=== PATIENT | female | born 1990 | race Caucasian/White ===

== ENCOUNTER 2017-06-20 17:20 | Inpatient (IN) | payer OTHER ==
[2017-06-20 18:23] VITALS: BMI 28.3
[2017-06-20] MEDS ORDERED: CITRIC ACID/SODIUM CITRATE 30 ML UNIT-DOSE CUP PO ONE (18:30)
[2017-06-20] MEDS ORDERED: ELECTROLYTE-148 SOLN 500 ML IV ONE (18:30)
[2017-06-20] MEDS ORDERED: ELECTROLYTE-148 SOLN 1,000 ML IV SCH (19:00)
[2017-06-20] MEDS ORDERED: morphine SULFATE/Preservative Free 0.5 MG/ML (1cc Syringe) ONE (20:12)
[2017-06-20] MEDS ORDERED: BUPIVACAINE 0.75% IN DEXTROSE/PF 2ML AMPULE NR ONE (20:20)
[2017-06-20] MEDS ORDERED: ceFAZolin SODIUM 1 GM VIAL ONE (20:27)
[2017-06-20] MEDS ORDERED: OXYTOCIN 10 UNITS/ML VIAL ONE (20:53)
[2017-06-20] MEDS ORDERED: D5W-LR W/ 20 UNITS OXYTOCIN 20 UNIT/1,000 ML INFUS.BAG IV SCH (21:30)
[2017-06-20] MEDS ORDERED: METHYLERGONOVINE MALEATE 0.2 MG/1 ML AMP IM PRN (22:48)
[2017-06-20] MEDS ORDERED: oxyCODONE HCL 5 MG TABLET PO PRN (22:48)
[2017-06-20] MEDS ORDERED: IBUPROFEN 800 MG/8 ML IJ IVPB PRN (22:50)
--- NOTE | 2017-06-20 22:52 | OP ---
Operative Note - Note: Operative Date: 06/20/17 Pre-Operative Diagnosis: Previous in labor Operation: Repeat Low Transverse Findings: Baby in Cephallic presentation Post-Operative Diagnosis: Same as Pre-op Surgeon: Martha Sanders Scheduling Administrator: Madison Puga Anesthesia: Spinal Specimens Removed: Placenta Estimated Blood Loss (mls): 600
--- NOTE | 2017-06-20 22:57 | HP ---
Past Medical History - Admission Chief Complaint: Pain in labor / Previous History of Present Illness: 26 yo @ 39 weeks gestation, EDC 06/27/17, presents to L&D c/o labor pain. She had one prior ; and was scheduled for repeat on June 23. History Source: Patient Limitations to Obtaining History: No Limitations - Past Medical History ...: 2 ...Para: 1 ...Term: 1 ...: 0 ...Spon : 0 ...Induced : 0 ...Multiple Gestation: 0 ...LMP: 09/20/16 ... Weeks Gestation by Dates: 39.0 ...EDC by Dates: 06/27/17 - Past Surgical History Past Surgical History: Yes: Hx Myomectomy: No Hx Transabdominal Cerclage: No - Smoking History Smoking history: Never smoked Have you smoked in the past 12 months: No - Alcohol/Substance Use Hx Alcohol Use: No History of Substance Use: reports: None - Social History Usual Living Arrangement: Yes: With Spouse History of Recent Travel: No Home Medications - Allergies Allergies/Adverse Reactions: Allergies Allergy/AdvReac Type Severity Reaction Status Date / Time aspirin Allergy Verified 06/20/17 18:26 metoclopramide [From Reglan] Allergy Verified 06/20/17 18:26 metronidazole [From Flagyl] Allergy Verified 06/20/17 18:26 ondansetron Allergy Verified 06/20/17 18:26 [From Zofran (as hydrochloride)] - Home Medications Home Medications: Ambulatory Orders Vitamins (Sjr) - 1 tab PO DAILY 06/20/17 Family Disease History - Family Disease History Family History: Unremarkable Review of Systems - Review of Systems Constitutional: reports: No Symptoms Eyes: reports: No Symptoms HENT: reports: No Symptoms Neck: reports: No Symptoms Cardiovascular: reports: No Symptoms Respiratory: reports: No Symptoms Gastrointestinal: reports: No Symptoms Genitourinary: reports: Pain Breasts: reports: No Symptoms Reported Musculoskeletal: reports: No Symptoms Integumentary: reports: No Symptoms Neurological: reports: No Symptoms Endocrine: reports: No Symptoms Hematology/Lymphatic: reports: No Symptoms Psychiatric: reports: No Symptoms Pain Intensity: 8 Physical Exam - Maternity Vital Signs: Vital Signs Temperature 98.2 F 06/20/17 22:15 Pulse Rate 75 05/05/18 22:15 Respiratory Rate 18 06/20/17 22:15 Blood Pressure 107/67 06/20/17 22:15 O2 Sat by Pulse Oximetry (%) 100 06/20/17 22:15 Constitutional: Yes: Well Nourished Eyes: Yes: Conjunctiva Clear HENT: Yes: Atraumatic Neck: Yes: Supple Cardiovascular: Yes: Regular Rate and Rhythm Lungs: Clear to auscultation - Abdominal Exam/OB Number of Fetuses: Single Presentation: Vertex Contractions: Yes Regularity: Regular Intensity: Mod/Strong - Vaginal Exam/OB Vaginal Bleediing: No Dilatation (cm): 2 - Physical Exam Musculoskeletal: Yes: WNL ...Motor Strength: WNL Psychiatric: Yes: Alert, Oriented Problem List - Problems (1) Previous section complicating , antepartum condition or complication Code(s): O34.219 - MATERNAL CARE FOR UNSP TYPE SCAR FROM PREVIOUS DEL (2) Pain during labor Code(s): O99.89 - OTH DISEASES AND CONDITIONS COMPL PREG/CHLDBRTH; R52 - PAIN, UNSPECIFIED Assessment/Plan Previous in labor IUP @ 39 weeks Pre op for repeat Consent signed Anesthesia to see patient
[2017-06-20] MEDS ORDERED: OXYTOCIN 20 UNITS in 0.9% NS 20 UNIT/1,000 ML INFUS.BAG IV SCH (23:00)
--- NOTE | 2017-06-21 07:35 | PN ---
Post Progress Note - Subjective Subjective: 26 yo Para 2, status post repeat Low Transverse , seen and evaluated. Doing well. She c/o incision pain. Post Day: 1 Type of Delivery: Repeat C/S Vital Signs: Vital Signs Temperature 98.9 F 06/21/17 06:00 Pulse Rate 98 H 06/21/17 06:00 Respiratory Rate 18 06/21/17 06:01 Blood Pressure 113/61 06/21/17 06:00 O2 Sat by Pulse Oximetry (%) 100 06/20/17 22:15 Breast Exam: Yes: Soft Uterus: Yes: Fundus @ umbilicus Incision: Yes: Dressing dry and intact Abdomen/GI: Yes: Abdomen soft Lochia: Yes: Rubra Lochia, amount: Small Extremities: Yes: Calves non-tender Perineum: Yes: Intact Activity: Other (She's lying in bed) Problem List - Problems (1) Previous section complicating , antepartum condition or complication Code(s): O34.219 - MATERNAL CARE FOR UNSP TYPE SCAR FROM PREVIOUS DEL (2) Pain during labor Code(s): O99.89 - OTH DISEASES AND CONDITIONS COMPL PREG/CHLDBRTH; R52 - PAIN, UNSPECIFIED (3) Status post repeat low transverse section Code(s): Z98.891 - HISTORY OF UTERINE SCAR FROM PREVIOUS SURGERY Assessment/Plan Status post repeat Low Transverse Ambulation Analgesia as needed Continue routine post op care
[2017-06-21 07:48] LABS: BASO % 0.3 % (0-2.0); EOS % 1.1 % (0-4.5); HEMATOCRIT 30.1 % (32.4-45.2); HEMOGLOBIN 10.3 GM/dL (10.7-15.3); LYMPH % 10.6 % (8-40); MCH 29.8 pg (25.7-33.7); MEAN CELL VOLUME 87.6 fl (80-96); MEAN PLT VOLUME 8.7 fl (7.5-11.1); MONO % 9.3 % (3.8-10.2); NEUT % 78.7 % (42.8-82.8); PLATELET COUNT 147 K/MM3 (134-434); RBC 3.44 M/mm3 (3.60-5.2); RDW 13.2 % (11.6-15.6); WHITE BLOOD COUNT 9.8 K/mm3 (4.0-10.0)
--- NOTE | 2017-06-21 09:11 | PN ---
Progress Note (short form) - Note Progress Note: Post op day#1.S/P C section under spinal anesthesia with duramorph uneventful.Patient stable and has little pain for which she is on medication.No any anesthesia related problem.Patient DC from the anesthesia care.
--- NOTE | 2017-06-21 12:20 | OP ---
DATE OF OPERATION: 06/20/2017 PREOPERATIVE DIAGNOSIS: Previous section in labor. POSTOPERATIVE DIAGNOSIS: Previous section in labor. PROCEDURE: Repeat low transverse section. SURGEON: Leann Sanders MD PARAMEDICAL AIDE: Madison Puga MD ANESTHESIA: Spinal. COMPLICATION: None. ESTIMATED BLOOD LOSS: 600 mL. PROCEDURE: The patient was taken to the operating room where spinal anesthesia was administered. The patient was then prepped and draped in proper sterile fashion. Then a Pfannenstiel incision was made and carried down to the underlying layer of fascia. The fascia was then incised in the midline and extended laterally. The superior aspect of the fascial incision was then grasped with a Maureen clamp, elevated, and the rectus muscle dissected out bluntly. Attention was then turned to the anterior aspect of the fascial incision, which in a similar fashion was then grasped with a Maureen clamped, elevated, and the rectus muscle dissected out bluntly. The rectus muscle was then in the midline, the peritoneum identified, and entered sharply with the Metzenbaum scissors. This incision was then extended superiorly and inferiorly with good visualization of the bladder. The vesicouterine peritoneum was then grasped with a pickup and entered sharply with Metzenbaum scissors. This incision was extended laterally and a bladder flap created digitally. The bladder blade was reinserted and then the lower uterine segment was then incised with a 10-blade and this incision was extended laterally and the head delivered atraumatically. Nose and mouth were suctioned and the cord clamped and cut. The infant was handed to the awaiting wholesale diamond broker. The placenta was removed manually. The uterus exteriorized and cleared of all clots and debris. The uterine incision was repaired using 0 Biosyn in a running locked fashion. A second layer of the same suture was used as a means to provide excellent hemostasis. Then the pelvis was then completely irrigated and the uterus was returned to the abdomen. The peritoneum was closed using 2-0 Biosyn. The fascia was reapproximated using 0-Vicryl in a running fashion and the skin was closed in a subcuticular fashion using 3-0 Vicryl. The patient tolerated the procedure well. The patient was then taken to PACU in stable condition. PATHOLOGY: Placenta. Laquita QUINONES/[id number]
[2017-06-21] MEDS: IBUPROFEN 600 MG TABLET (FP) PO PRN (20:03)
[2017-06-21] MEDS: SIMETHICONE 80 MG TAB.CHEW (FP) PO PRN (20:03)
[2017-06-21] MEDS ORDERED: BISACODYL 10 MG SUPP.RECT RC PRN (22:53)
--- NOTE | 2017-06-22 04:56 | PN ---
Post Progress Note - Subjective Subjective: 26 yo Para 2 status post repeat , seen and evaluated. Doing well Post Day: 2 Type of Delivery: Repeat C/S Vital Signs: Vital Signs Temperature 99.2 F 06/21/17 21:32 Pulse Rate 88 06/21/17 21:32 Respiratory Rate 18 06/21/17 21:37 Blood Pressure 127/79 06/21/17 21:32 O2 Sat by Pulse Oximetry (%) 100 06/20/17 22:15 Breast Exam: Yes: Soft Uterus: Yes: Fundus Firm Incision: Yes: Dressing dry and intact Abdomen/GI: Yes: Abdomen soft, Tolerating PO Lochia: Yes: Rubra Lochia, amount: Small Extremities: Yes: Calves non-tender Perineum: Yes: Intact Activity: Ambulating - Labs Labs: CBC WBC 9.8 K/mm3 (4.0-10.0) 06/21/17 07:00 RBC 3.44 M/mm3 (3.60-5.2) L 06/21/17 07:00 Hgb 10.3 GM/dL (10.7-15.3) L D 06/21/17 07:00 Hct 30.1 % (32.4-45.2) L D 06/21/17 07:00 MCV 87.6 fl (80-96) 06/21/17 07:00 MCH 29.8 pg (25.7-33.7) 06/21/17 07:00 MCHC 34.0 g/dl (32.0-36.0) 06/21/17 07:00 RDW 13.2 % (11.6-15.6) 06/21/17 07:00 Plt Count 147 K/MM3 (134-434) D 06/21/17 07:00 MPV 8.7 fl (7.5-11.1) D 06/21/17 07:00 Neutrophils % 78.7 % (42.8-82.8) 06/21/17 07:00 Lymphocytes % 10.6 % (8-40) D 06/21/17 07:00 Monocytes % 9.3 % (3.8-10.2) 06/21/17 07:00 Eosinophils % 1.1 % (0-4.5) 06/21/17 07:00 Basophils % 0.3 % (0-2.0) 06/21/17 07:00 Problem List - Problems (1) Previous section complicating , antepartum condition or complication Code(s): O34.219 - MATERNAL CARE FOR UNSP TYPE SCAR FROM PREVIOUS DEL (2) Pain during labor Code(s): O99.89 - OTH DISEASES AND CONDITIONS COMPL PREG/CHLDBRTH; R52 - PAIN, UNSPECIFIED (3) Status post repeat low transverse section Code(s): Z98.891 - HISTORY OF UTERINE SCAR FROM PREVIOUS SURGERY Assessment/Plan Status post repeat Low Transverse Ambulation Analgesia as needed Continue routine post op care
[2017-06-22] MEDS ORDERED: DIPHTH,PERTUSS(ACELL),TET 0.5 ML DISP.SYRIN IM ONE (10:00)
[2017-06-22] MEDS: IBUPROFEN 600 MG TABLET (FP) PO PRN (14:24)
[2017-06-22] MEDS: SIMETHICONE 80 MG TAB.CHEW (FP) PO PRN (14:25)
--- NOTE | 2017-06-23 07:17 | PN ---
Post Progress Note - Subjective Subjective: vss, no lab abnormalities Post Day: 3 Type of Delivery: Repeat C/S Vital Signs: Vital Signs Temperature 98.2 F 06/22/17 22:00 Pulse Rate 89 06/22/17 22:00 Respiratory Rate 18 06/22/17 22:00 Blood Pressure 113/53 06/22/17 22:00 O2 Sat by Pulse Oximetry (%) 100 06/20/17 22:15 - Labs Labs: CBC WBC 9.8 K/mm3 (4.0-10.0) 06/21/17 07:00 RBC 3.44 M/mm3 (3.60-5.2) L 06/21/17 07:00 Hgb 10.3 GM/dL (10.7-15.3) L D 06/21/17 07:00 Hct 30.1 % (32.4-45.2) L D 06/21/17 07:00 MCV 87.6 fl (80-96) 06/21/17 07:00 MCH 29.8 pg (25.7-33.7) 06/21/17 07:00 MCHC 34.0 g/dl (32.0-36.0) 06/21/17 07:00 RDW 13.2 % (11.6-15.6) 06/21/17 07:00 Plt Count 147 K/MM3 (134-434) D 06/21/17 07:00 MPV 8.7 fl (7.5-11.1) D 06/21/17 07:00 Neutrophils % 78.7 % (42.8-82.8) 06/21/17 07:00 Lymphocytes % 10.6 % (8-40) D 06/21/17 07:00 Monocytes % 9.3 % (3.8-10.2) 06/21/17 07:00 Eosinophils % 1.1 % (0-4.5) 06/21/17 07:00 Basophils % 0.3 % (0-2.0) 06/21/17 07:00 Assessment/Plan continue po care oob reg diet pain control
[2017-06-23 08:00] VITALS: BP 122/68; PULSE 81; TEMP 98.3
[2017-06-23 08:47] LABS: BASO % 0.3 % (0-2.0); EOS % 2.6 % (0-4.5); HEMATOCRIT 31.3 % (32.4-45.2); HEMOGLOBIN 10.7 GM/dL (10.7-15.3); LYMPH % 15.9 % (8-40); MCHC 34.2 g/dl (32.0-36.0); MEAN CELL VOLUME 87.8 fl (80-96); MEAN PLT VOLUME 9.3 fl (7.5-11.1); MONO % 8.5 % (3.8-10.2); NEUT % 72.7 % (42.8-82.8); PLATELET COUNT 188 K/MM3 (134-434); RBC 3.56 M/mm3 (3.60-5.2); RDW 13.4 % (11.6-15.6); WHITE BLOOD COUNT 9.6 K/mm3 (4.0-10.0)
--- NOTE | 2017-06-23 11:16 | DS ---
Physical Exam-FIBER TECHNOLOGIST Vital Signs: Vital Signs Temperature 98.3 F 06/23/17 07:51 Pulse Rate 81 06/23/17 07:51 Respiratory Rate 18 06/23/17 07:51 Blood Pressure 122/68 06/23/17 07:51 O2 Sat by Pulse Oximetry (%) 100 06/20/17 22:15 Constitutional: Yes: Well Nourished, No Distress, Calm Neck: Yes: Supple, Trachea Midline Cardiovascular: Yes: WNL Respiratory: Yes: WNL Gastrointestinal: Yes: Normal Bowel Sounds, Soft ....Post : Yes: Uterus firm, Uterus non-tender Extremities: Yes: WNL Wound/Incision: Yes: Clean/Dry, Well Approximated Neurological: Yes: Alert, Oriented Psychiatric: Yes: Alert, Oriented Labs: CBC, BMP 06/23/17 07:45 Delivery - Delivery Section: Repeat, Low Flap Transverse Type of Anesthesia: Epidural Episiotomy/Laceration: None EBL (cc): 500 Delivery, Single - Stages of Labor Date 1st Stage Initiatied: 06/20/17 Time 1st Stage Initiated: 16:00 Date of Delivery: 06/20/17 Time of Delivery: 20:40 Time Placenta Delivered: 20:41 - Condition of Infant Oracle Sql Developer/Application Helper Present: Yes Name: Chasity Landry Gender: Male Weight: 6 lb 7 oz Position: Right, OA Total Hours ROM (Hrs/Mins): 2MIN - 1 Minute Total Score: 9 5 Minutes Total Score: 9 - [place] Feeding Plan Initial Plan: Elected not to breastfeed exclusively throughout hospitalization Discharge Summary Reason For Visit: C SECTION Current Active Problems Pain during labor (Acute) Previous section complicating , antepartum condition or complication (Acute) Status post repeat low transverse section (Acute) Procedures: Principal: Repeat delivery - Instructions Diet, Activity, Other Instructions: Physical activity Resume your normal everyday activity as tolerated no heavy lifting or exercise until seen by your surgeon. You may walk unlimited amounts and climb stairs. You may resume driving the car when you feel safe and comfortable behind the wheel. No sexual activity as instructed. Wound care If there are tapes on the skin leave them in place. They will peel off in the next 7 to 10 days. Do Not Peel them off. You may shower the day after surgery. If there are tapes present on the skin, you may shower over them. Diet There are no dietary restrictions. Eat healthy, high-fiber foods. Drink 6 to 8 glasses of liquid each day. This will assist in keeping your bowels are regular. Pain management You may take Tylenol or Ibuprofen (for example, Motrin, Advil etc.)for pain. if any prescription medication is ordered should be taken as prescribed for moderate to severe pain. Call MD for any of the following: Severe pain not relieved by medication Fever of 101 or higher Excessive bleeding or drainage on dressing Inability to urinate Referrals: Olga Yost MD [Staff Physician] - - Home Medications Comprehensive Discharge Medication List: Ambulatory Orders Vitamins (Sjr) - 1 tab PO DAILY 06/20/17
[2017-06-23] MEDS: IBUPROFEN 600 MG TABLET (FP) PO PRN (11:25)
[2017-06-23] MEDS: SIMETHICONE 80 MG TAB.CHEW (FP) PO PRN (11:26)
--- NOTE | 2017-07-01 16:05 | PATH ---
Surgical Pathology Report Patient Name: DANNA MENA [facility]. Rec. #: [id number] /Age/Gender: 1990 (Age: 26) / F Account: [id number] Location: [facility] OBS/PATIENT EXPERIENCE COORDINATOR Taken: 06/20/2017 Received: 06/22/2017 Reported: 07/01/2017 Physicians: Martha Sanders M.D. Specimen(s) Received PLACENTA Clinical History , 39 weeks previous in labor Final Diagnosis PLACENTA: MATURE THIRD TRIMESTER PLACENTA. TRIVASCULAR CORD. MEMBRANES WITH NO DIAGNOSTIC ABNORMALITIES. Electronically Signed Nieves Seo M.D. Gross Description The specimen is received fresh labeled placenta and is a 302 gram, 13.0 x 13.0 x 2.8 cm. placenta with attached membranes and umbilical cord. The attached membranes are hoskins, translucent focal opacities and insert marginally. The umbilical cord measures 29 cm. in length and averages 1.0 cm. in diameter. The cord inserts eccentrically, 4 cm. to the nearest margin. No true knots or strictures are identified. Cut surface of the umbilical cord reveals 3 vessels. The surface is hayden-blue with minimal fibrin deposition and appropriate caliber vessels. The maternal surface is red-brown with focal defects. Sectioning reveals red-brown, spongy parenchyma. No lesions are identified. Certified Personal Finance Counselor sections are submitted in three cassettes as follows: 1- membrane rolls and umbilical cord; 2-3- full thickness sections of placenta. 06/30/2017 saudi06/30/2017
== END 2017-06-23 12:50 | disposition home or self-care (01) | DRG 540 ==
LOC: JLDR 17:20 → J3W 23:10
PROVIDERS: ADMIT Obstetrics & Gynecology; ATTEND Obstetrics & Gynecology
PROC: 10D00Z1 Extraction of Products of Conception, Low, Open Approach (ICD-10-PCS; principal; 2017-06-20)
DX: O34.219 Maternal care for unspecified type scar from previous cesarean delivery (principal); Z3A.39 39 weeks gestation of pregnancy; Z37.0 Single live birth
CPT/HCPCS: 36415; 85025; 88307-TC; 90715